=== PATIENT | female | born 1970 | race Caucasian/White ===

== ENCOUNTER 2017-05-25 05:37 | Inpatient (IN) | payer MEDICAID ==
[~2017-05-25] VITALS: Ht 157.5 cm; Wt 65.9 kg
[2017-05-25] MEDS ORDERED: acetaminophen 325mg tablet PO ONE (05:50)
[2017-05-25 06:13] LABS: BASOPHILS % (AUTO) 0.2 % (0-1); EOSINOPHILS % (AUTO) 0.1 % (0-6); HEMATOCRIT 36.2 % (35.0-45.0); HEMOGLOBIN 12.8 g/dl (12.0-16.0); LYMPHOCYTES # (AUTO) 0.6 X10'3 (1.1-4.8); LYMPHOCYTES % (AUTO) 3.9 % (21-51); MEAN CORPUSCULAR HEMOGLOBIN 29.1 PG (27.0-31.0); MEAN CORPUSCULAR HGB CONC 35.4 % (33.0-36.5); MEAN CORPUSCULAR VOLUME 82.2 FL (78-98); MEAN PLATELET VOLUME 7.5 FL (7.4-10.4); MONOCYTES # (AUTO) 0.5 X10'3 (0-0.9); MONOCYTES % (AUTO) 3.2 % (2-12); NEUTROPHILS # (AUTO) 14.9 X10'3 (1.8-7.7); NEUTROPHILS % (AUTO) 92.6 % (42-75); PLATELET COUNT 222 X10'3 (140-440); RED CELL DISTRIBUTION WIDTH 13.7 % (11.5-14.5); WHITE BLOOD COUNT 16.1 X10'3 (4.5-11.0)
[2017-05-25] MEDS ORDERED: METF500T PO (06:14)
[2017-05-25] MEDS ORDERED: LISI-600 PO (06:14)
[2017-05-25] MEDS ORDERED: normal saline 1000ML IV soln IV ONE (06:20)
[2017-05-25] MEDS ORDERED: CefTRIAXone 2gm/D5W 50ml 50 ML IV ONE (06:20)
[2017-05-25 06:28] LABS: ALANINE AMINOTRANSFERASE 71 U/L (12-78); ALBUMIN 3.6 G/DL (3.4-5.0); ALBUMIN/GLOBULIN RATIO 0.8 (1.1-1.5); ALKALINE PHOSPHATASE 113 IU/L (46-116); ANION GAP 13 (8-16); ASPARTATE AMINO TRANSFERASE 26 U/L (10-37); BILIRUBIN,TOTAL 0.5 MG/DL (0.1-1.0); BLOOD UREA NITROGEN 22 MG/DL (7-18); BUN/CREATININE RATIO 18.8 (6.6-38.0); CALCIUM 9.2 MG/DL (8.5-10.1); CHLORIDE 97 MMOL/L (99-107); CREATININE 1.17 MG/DL (0.40-0.90); GLUCOSE 261 MG/DL (70-104); POTASSIUM 4.1 MMOL/L (3.5-5.1); SODIUM 134 MMOL/L (135-145); TOTAL CARBON DIOXIDE 23.9 MMOL/L (24-32); TOTAL PROTEIN 8.1 G/DL (6.4-8.2); eGFR 50 ML/MIN
[2017-05-25 06:30] LABS: PARTIAL THROMBOPLASTIN TIME 27 SECONDS (22-32); PROTHROMBIN TIME 10.4 SECONDS (9.0-12.0)
[2017-05-25] MEDS ORDERED: TETanus/Pertussis (Acell)/Diphther VAC/PF (Tdap-Adult) 0.5ml syringe IM ONE (06:35)
[2017-05-25 06:37] LABS: CLARITY,URINE SLIGHTLY CLOUDY (Clear); COLOR,URINE YELLOW (Yellow); GLUCOSE, URINE 100 mg/dl (Neg); KETONES,URINE NEGATIVE (Neg); LEUKOCYTE ESTERASE ,URINE TRACE (Neg); NITRITES, URINE POSITIVE (Neg); OCCULT BLOOD,URINE SMALL (Neg); PROTEIN,URINE NEGATIVE (Neg); UROBILINOGEN,URINE 0.2 E.U/dL (0.2-1.0)
[2017-05-25 06:44] LABS: UA COLLECTION TYPE CLN CATCH MIDSTREAM
[2017-05-25 06:47] LABS: BACTERIA,URINE 4+ /HPF (Neg); MUCUS STRANDS NONE SEEN /LPF (Neg); RBC,URINE NONE SEEN /HPF (0-2); SQUAMOUS EPITHELIAL CELL,UR FEW /LPF (FEW); WBC,URINE 0-4 /HPF (0-4)
[2017-05-25] MEDS ORDERED: potassium Cl 20 mEq SR tablet PO PRN (07:25)
[2017-05-25] MEDS ORDERED: magnesium 4gm in 100ml NS 100 ML IV PRN (07:25)
[2017-05-25] MEDS ORDERED: mag hydrox/Alum hydrox/simeth 30ml oral suspension PO PRN (07:25)
[2017-05-25] MEDS ORDERED: magnesium 2GM in 50ml NS 50 ML IV PRN (07:25)
[2017-05-25] MEDS ORDERED: ondansetron/PF 4mg/2ml inj IV PRN (07:25)
[2017-05-25] MEDS ORDERED: potassium Cl 40MEQ/NS 500ml 500 ML IV PRN ×2 (07:25)
[2017-05-25] MEDS ORDERED: acetaminophen 325mg tablet PO PRN ×2 (07:25)
[2017-05-25] MEDS ORDERED: magnesium hydroxide 30ml (MOM) UD suspension PO PRN (07:25)
[2017-05-25 07:53] LABS: HEMOGLOBIN A1C 9.4 % (4.5-6.2)
[2017-05-25] MEDS: K and/or MAG REPLACEMENT MC SCH (08:00)
[2017-05-25] MEDS ORDERED: dextrose 50%-water 50ml dispensing syringe IV PRN ×2 (08:05)
[2017-05-25] MEDS ORDERED: dextrose ORAL solution 15 GM/59 ML bottle PO PRN ×2 (08:05)
[2017-05-25] MEDS ORDERED: MESSAGE TO PHARMACY PO ONE (08:05)
[2017-05-25] MEDS ORDERED: glucagon, human recombinant 1mg kit SUBCUT PRN (08:05)
[2017-05-25] MEDS: enoxaparin 40mg/0.4ml syringe SUBCUT SCH (08:14)
[2017-05-25] MEDS: normal saline 1000ml 1,000 ML IV SCH ×2 (08:14→17:25)
[2017-05-25] MEDS: morphine 4 MG/ML inj SYRINge IV PRN (08:22)
[2017-05-25] MEDS: HYDROcodone/acetaminophen 5mg/325mg tablet PO PRN ×2 (08:22→21:11)
[2017-05-25 10:00] VITALS: BP 133/74
[2017-05-25 12:05] VITALS: BP 104/59
[2017-05-25] MEDS ORDERED: ampicillin/sulbac 3gm/NS 100ml 100 ML IV SCH (14:00)
[2017-05-25] MEDS: SULBACTAM IV SCH ×2 (16:45→21:12)
[2017-05-25] MEDS: DEXTROSE 5% IV SCH ×2 (16:45→21:12)
[2017-05-25] MEDS: AMPICILLIN IV SCH ×2 (16:45→21:12)
[2017-05-25] MEDS: WATER IV SCH ×2 (16:45→21:12)
[2017-05-25 18:00] VITALS: BP 93/44
[2017-05-25] MEDS ORDERED: temazepam 15mg capsule PO PRN (21:00)
[2017-05-25] MEDS: metFORMIN 500mg tablet PO SCH (21:12)
[2017-05-25] MEDS: famotidine 20mg tablet PO SCH (21:12)
[2017-05-25] MEDS: insulin glargine (Lantus) pen - multi-dose SQ SCH (21:25)
[2017-05-25 22:00] VITALS: BP 125/69
[2017-05-26] MEDS: SULBACTAM IV SCH ×4 (01:55→19:39)
[2017-05-26] MEDS: AMPICILLIN IV SCH ×4 (01:55→19:39)
[2017-05-26] MEDS: WATER IV SCH ×4 (01:55→19:39)
[2017-05-26] MEDS: DEXTROSE 5% IV SCH ×4 (01:55→19:39)
[2017-05-26] MEDS: normal saline 1000ml 1,000 ML IV SCH ×2 (02:07→13:59)
[2017-05-26] MEDS: HYDROcodone/acetaminophen 5mg/325mg tablet PO PRN ×3 (02:07→17:02)
[2017-05-26 06:00] VITALS: BP 117/57
[2017-05-26 06:03] LABS: BASOPHILS % (AUTO) 0.1 % (0-1); EOSINOPHILS # (AUTO) 0.1 X10'3 (0-0.9); EOSINOPHILS % (AUTO) 1.2 % (0-6); HEMATOCRIT 32.4 % (35.0-45.0); HEMOGLOBIN 11.1 g/dl (12.0-16.0); LYMPHOCYTES % (AUTO) 11.4 % (21-51); MEAN CORPUSCULAR HEMOGLOBIN 28.6 PG (27.0-31.0); MEAN CORPUSCULAR HGB CONC 34.3 % (33.0-36.5); MEAN CORPUSCULAR VOLUME 83.3 FL (78-98); MEAN PLATELET VOLUME 8.1 FL (7.4-10.4); MONOCYTES # (AUTO) 0.3 X10'3 (0-0.9); MONOCYTES % (AUTO) 3.5 % (2-12); NEUTROPHILS # (AUTO) 7.5 X10'3 (1.8-7.7); NEUTROPHILS % (AUTO) 83.8 % (42-75); PLATELET COUNT 152 X10'3 (140-440); RED CELL DISTRIBUTION WIDTH 14.2 % (11.5-14.5); WHITE BLOOD COUNT 8.9 X10'3 (4.5-11.0)
[2017-05-26 06:20] LABS: ALBUMIN 2.4 G/DL (3.4-5.0); ANION GAP 11 (8-16); BLOOD UREA NITROGEN 12 MG/DL (7-18); BUN/CREATININE RATIO 12.6 (6.6-38.0); CALCIUM 8.1 MG/DL (8.5-10.1); CHLORIDE 102 MMOL/L (99-107); CREATININE 0.95 MG/DL (0.40-0.90); GLUCOSE 138 MG/DL (70-104); MAGNESIUM 1.4 MG/DL (1.5-2.4); POTASSIUM 3.4 MMOL/L (3.5-5.1); SODIUM 136 MMOL/L (135-145); TOTAL CARBON DIOXIDE 22.7 MMOL/L (24-32); eGFR 63 ML/MIN
[2017-05-26] MEDS: K and/or MAG REPLACEMENT MC SCH (08:00)
[2017-05-26] MEDS: metFORMIN 500mg tablet PO SCH ×2 (08:46→19:40)
[2017-05-26] MEDS: enoxaparin 40mg/0.4ml syringe SUBCUT SCH (08:47)
[2017-05-26] MEDS: magnesium Cl slow-release 64mg tablet PO PRN ×2 (08:47→16:59)
[2017-05-26] MEDS: potassium Cl 20 mEq SR tablet PO PRN ×3 (08:47→22:55)
[2017-05-26] MEDS: lisinopril 20mg tablet PO SCH (08:50)
[2017-05-26 08:51] VITALS: BP 138/80
[2017-05-26 10:00] VITALS: BP 118/66
[2017-05-26] MEDS: morphine 4 MG/ML inj SYRINge IV PRN ×2 (14:28→19:47)
[2017-05-26 18:00] VITALS: BP 116/62
[2017-05-26] MEDS: insulin Lispro (HumaLOG) vial - multi-dose SQ SCH (19:38)
[2017-05-26] MEDS: famotidine 20mg tablet PO SCH (21:28)
[2017-05-26] MEDS: insulin glargine (Lantus) pen - multi-dose SQ SCH (21:28)
[2017-05-26 22:00] VITALS: BP 104/61
[2017-05-27] MEDS: SULBACTAM IV SCH ×4 (01:33→19:19)
[2017-05-27] MEDS: WATER IV SCH ×4 (01:33→19:19)
[2017-05-27] MEDS: DEXTROSE 5% IV SCH ×4 (01:33→19:19)
[2017-05-27] MEDS: AMPICILLIN IV SCH ×4 (01:33→19:19)
[2017-05-27] MEDS: HYDROcodone/acetaminophen 5mg/325mg tablet PO PRN ×4 (01:34→21:43)
[2017-05-27] MEDS: normal saline 1000ml 1,000 ML IV SCH ×3 (01:37→21:48)
[2017-05-27 05:28] LABS: BASOPHILS % (AUTO) 0.1 % (0-1); EOSINOPHILS # (AUTO) 0.1 X10'3 (0-0.9); EOSINOPHILS % (AUTO) 0.9 % (0-6); HEMOGLOBIN 10.6 g/dl (12.0-16.0); LYMPHOCYTES # (AUTO) 1.2 X10'3 (1.1-4.8); MEAN CORPUSCULAR HEMOGLOBIN 28.6 PG (27.0-31.0); MEAN PLATELET VOLUME 7.9 FL (7.4-10.4); MONOCYTES # (AUTO) 0.4 X10'3 (0-0.9); MONOCYTES % (AUTO) 5.4 % (2-12); NEUTROPHILS # (AUTO) 6.1 X10'3 (1.8-7.7); NEUTROPHILS % (AUTO) 78.6 % (42-75); PLATELET COUNT 165 X10'3 (140-440); RED BLOOD COUNT 3.69 X10'6 (4.20-5.60); RED CELL DISTRIBUTION WIDTH 13.9 % (11.5-14.5); WHITE BLOOD COUNT 7.8 X10'3 (4.5-11.0)
[2017-05-27 05:43] LABS: ALBUMIN 2.3 G/DL (3.4-5.0); ANION GAP 7 (8-16); BLOOD UREA NITROGEN 9 MG/DL (7-18); BUN/CREATININE RATIO 9.8 (6.6-38.0); CALCIUM 8.7 MG/DL (8.5-10.1); CHLORIDE 106 MMOL/L (99-107); CREATININE 0.92 MG/DL (0.40-0.90); GLUCOSE 119 MG/DL (70-104); MAGNESIUM 1.7 MG/DL (1.5-2.4); POTASSIUM 4.2 MMOL/L (3.5-5.1); SODIUM 141 MMOL/L (135-145); eGFR 66 ML/MIN
[2017-05-27 06:00] VITALS: BP 124/64
[2017-05-27] MEDS: K and/or MAG REPLACEMENT MC SCH (07:10)
[2017-05-27] MEDS: metFORMIN 500mg tablet PO SCH ×2 (07:17→19:19)
[2017-05-27] MEDS: enoxaparin 40mg/0.4ml syringe SUBCUT SCH (07:18)
[2017-05-27] MEDS: lisinopril 20mg tablet PO SCH (07:20)
[2017-05-27 07:21] VITALS: BP 116/73
[2017-05-27] MEDS: insulin Lispro (HumaLOG) vial - multi-dose SQ SCH ×3 (09:26→19:18)
[2017-05-27 10:00] VITALS: BP 127/77
[2017-05-27] MEDS: clindamycin phosphate inj 300 MG in dextrose 5%-water 50ml 48 ML IV SCH ×2 (15:22→21:39)
[2017-05-27 18:00] VITALS: BP 107/65
[2017-05-27] MEDS: Protein Smoothie (high protein) 240ml (8oz) cup PO SCH (18:00)
[2017-05-27] MEDS: famotidine 20mg tablet PO SCH (21:39)
[2017-05-27] MEDS: insulin glargine (Lantus) pen - multi-dose SQ SCH (21:39)
[2017-05-27 22:00] VITALS: BP 111/72
[2017-05-28] MEDS: SULBACTAM IV SCH ×4 (01:26→20:24)
[2017-05-28] MEDS: DEXTROSE 5% IV SCH ×4 (01:26→20:24)
[2017-05-28] MEDS: AMPICILLIN IV SCH ×4 (01:26→20:24)
[2017-05-28] MEDS: WATER IV SCH ×4 (01:26→20:24)
[2017-05-28] MEDS: clindamycin phosphate inj 300 MG in dextrose 5%-water 50ml 48 ML IV SCH ×4 (02:04→21:30)
[2017-05-28] MEDS: normal saline 1000ml 1,000 ML IV SCH ×2 (05:25→13:08)
[2017-05-28 05:48] LABS: BASOPHILS % (AUTO) 0.2 % (0-1); EOSINOPHILS # (AUTO) 0.1 X10'3 (0-0.9); EOSINOPHILS % (AUTO) 1.2 % (0-6); HEMATOCRIT 28.8 % (35.0-45.0); HEMOGLOBIN 9.8 g/dl (12.0-16.0); LYMPHOCYTES # (AUTO) 1.2 X10'3 (1.1-4.8); LYMPHOCYTES % (AUTO) 18.5 % (21-51); MEAN CORPUSCULAR HEMOGLOBIN 28.3 PG (27.0-31.0); MEAN CORPUSCULAR VOLUME 83.2 FL (78-98); MEAN PLATELET VOLUME 8.3 FL (7.4-10.4); MONOCYTES # (AUTO) 0.5 X10'3 (0-0.9); MONOCYTES % (AUTO) 7.7 % (2-12); NEUTROPHILS # (AUTO) 4.6 X10'3 (1.8-7.7); NEUTROPHILS % (AUTO) 72.4 % (42-75); PLATELET COUNT 148 X10'3 (140-440); RED BLOOD COUNT 3.46 X10'6 (4.20-5.60); RED CELL DISTRIBUTION WIDTH 13.9 % (11.5-14.5); WHITE BLOOD COUNT 6.3 X10'3 (4.5-11.0)
[2017-05-28 05:58] LABS: ALBUMIN 2.1 G/DL (3.4-5.0); ANION GAP 9 (8-16); BLOOD UREA NITROGEN 10 MG/DL (7-18); BUN/CREATININE RATIO 11.6 (6.6-38.0); CALCIUM 8.7 MG/DL (8.5-10.1); CHLORIDE 104 MMOL/L (99-107); CREATININE 0.86 MG/DL (0.40-0.90); GLUCOSE 122 MG/DL (70-104); MAGNESIUM 1.8 MG/DL (1.5-2.4); SODIUM 140 MMOL/L (135-145); TOTAL CARBON DIOXIDE 27.5 MMOL/L (24-32); eGFR 71 ML/MIN
[2017-05-28 06:00] VITALS: BP 121/74
[2017-05-28] MEDS: K and/or MAG REPLACEMENT MC SCH (07:22)
[2017-05-28 07:30] VITALS: BP 129/74
[2017-05-28] MEDS: metFORMIN 500mg tablet PO SCH ×2 (07:30→21:14)
[2017-05-28] MEDS: enoxaparin 40mg/0.4ml syringe SUBCUT SCH (07:31)
[2017-05-28] MEDS: lisinopril 20mg tablet PO SCH (07:40)
[2017-05-28] MEDS: Protein Smoothie (high protein) 240ml (8oz) cup PO SCH ×3 (08:00→21:07)
[2017-05-28 09:58] LABS: % IRON SATURATION 10 % (11-46); IRON 22 UG/DL (49-151); TOTAL IRON BINDING CAPACITY 225 UG/DL (259-388)
[2017-05-28 09:59] VITALS: BP 109/57
[2017-05-28] MEDS: HYDROcodone/acetaminophen 5mg/325mg tablet PO PRN (10:04)
[2017-05-28 18:00] VITALS: BP 106/69
[2017-05-28] MEDS: morphine 4 MG/ML inj SYRINge IV PRN (19:14)
[2017-05-28] MEDS: famotidine 20mg tablet PO SCH (21:15)
[2017-05-28] MEDS: insulin glargine (Lantus) pen - multi-dose SQ SCH (21:19)
[2017-05-28 22:00] VITALS: BP 112/63
[2017-05-29] MEDS: normal saline 1000ml 1,000 ML IV SCH ×2 (01:25→11:05)
[2017-05-29] MEDS: DEXTROSE 5% IV SCH ×2 (02:06→09:31)
[2017-05-29] MEDS: SULBACTAM IV SCH ×2 (02:06→09:31)
[2017-05-29] MEDS: WATER IV SCH ×2 (02:06→09:31)
[2017-05-29] MEDS: AMPICILLIN IV SCH ×2 (02:06→09:31)
[2017-05-29] MEDS: clindamycin phosphate inj 300 MG in dextrose 5%-water 50ml 48 ML IV SCH ×2 (03:32→08:16)
[2017-05-29 05:34] LABS: BASOPHILS % (AUTO) 0.1 % (0-1); EOSINOPHILS # (AUTO) 0.1 X10'3 (0-0.9); EOSINOPHILS % (AUTO) 1.1 % (0-6); HEMATOCRIT 28.9 % (35.0-45.0); HEMOGLOBIN 9.9 g/dl (12.0-16.0); LYMPHOCYTES % (AUTO) 18.6 % (21-51); MEAN CORPUSCULAR HEMOGLOBIN 28.6 PG (27.0-31.0); MEAN CORPUSCULAR HGB CONC 34.3 % (33.0-36.5); MEAN CORPUSCULAR VOLUME 83.3 FL (78-98); MEAN PLATELET VOLUME 8.1 FL (7.4-10.4); MONOCYTES # (AUTO) 0.4 X10'3 (0-0.9); MONOCYTES % (AUTO) 7.6 % (2-12); NEUTROPHILS # (AUTO) 4.1 X10'3 (1.8-7.7); NEUTROPHILS % (AUTO) 72.6 % (42-75); PLATELET COUNT 179 X10'3 (140-440); RED BLOOD COUNT 3.47 X10'6 (4.20-5.60); RED CELL DISTRIBUTION WIDTH 13.9 % (11.5-14.5); WHITE BLOOD COUNT 5.6 X10'3 (4.5-11.0)
[2017-05-29 05:46] LABS: ALBUMIN 2.2 G/DL (3.4-5.0); ANION GAP 9 (8-16); BLOOD UREA NITROGEN 10 MG/DL (7-18); BUN/CREATININE RATIO 12.2 (6.6-38.0); CALCIUM 8.7 MG/DL (8.5-10.1); CHLORIDE 105 MMOL/L (99-107); CREATININE 0.82 MG/DL (0.40-0.90); GLUCOSE 121 MG/DL (70-104); MAGNESIUM 1.9 MG/DL (1.5-2.4); POTASSIUM 3.6 MMOL/L (3.5-5.1); SODIUM 142 MMOL/L (135-145); TOTAL CARBON DIOXIDE 27.8 MMOL/L (24-32); eGFR 75 ML/MIN
[2017-05-29 06:00] VITALS: BP 145/85
[2017-05-29] MEDS: K and/or MAG REPLACEMENT MC SCH (08:00)
[2017-05-29] MEDS: enoxaparin 40mg/0.4ml syringe SUBCUT SCH (08:16)
[2017-05-29] MEDS: metFORMIN 500mg tablet PO SCH (08:16)
[2017-05-29] MEDS: lisinopril 20mg tablet PO SCH (08:16)
[2017-05-29] MEDS: Protein Smoothie (high protein) 240ml (8oz) cup PO SCH (08:17)
[2017-05-29] MEDS: HYDROcodone/acetaminophen 5mg/325mg tablet PO PRN (08:18)
[2017-05-29 10:31] VITALS: BP 114/72
[2017-05-29] MEDS ORDERED: LACT1CAP60 PO (11:21)
[2017-05-29] MEDS ORDERED: CLIN300C71 PO (11:21)
[2017-05-29] MEDS ORDERED: SULF1TAB49 PO (11:48)
[2017-05-29] MEDS ORDERED: lactobacillus rhamnosus 10,000 MMU CELLS/CAPSULE PO SCH (20:00)
== END 2017-05-29 12:30 | disposition home or self-care (01) | DRG 720 ==
LOC: ER 05:37 → ED HOLD 07:25 → ORTHO 4S 11:35
PROVIDERS: ADMIT Internal Medicine; ATTEND Internal Medicine
DX: A41.9 Sepsis, unspecified organism (principal); I10 Essential (primary) hypertension; L03.115 Cellulitis of right lower limb; E11.9 Type 2 diabetes mellitus without complications; F12.90 Cannabis use, unspecified, uncomplicated; F17.210 Nicotine dependence, cigarettes, uncomplicated; L03.116 Cellulitis of left lower limb
CPT/HCPCS: 36415; 70486; 71045; 73590; 80048; 80053; 81001; 82607; 82746; 82948; 83036; 83540; 83550; 83605; 83735; 84145; 85025; 85610; 85730; 87040; 87070; 87077; 87088; 87186; 90471; 90715; 93971; 96365; 99285; J0295; J0696; J1650; J1815; J2270; J3490; J7030; J7060

== ENCOUNTER 2024-05-13 22:04 | Emergency (ER) | payer MEDICAID ==
[~2024-05-13] VITALS: Ht 157.5 cm; Wt 71.8 kg
[~2024-05-13 22:04] MED LIST: CLIN300C71 PO; LACT1CAP60 PO; LISI20TA28 PO; METF500T PO; SULF1TAB49 PO
[2024-05-13 22:49] LABS: BASOPHILS # (AUTO) 0.1 X10'3 (0-0.2); BASOPHILS % (AUTO) 0.8 % (0-1); EOSINOPHILS # (AUTO) 0.1 X10'3 (0-0.9); EOSINOPHILS % (AUTO) 1.8 % (0-6); HEMATOCRIT 42.5 % (35.0-45.0); HEMOGLOBIN 14.5 g/dl (12.0-16.0); LYMPHOCYTES # (AUTO) 2.4 X10'3 (1.1-4.8); LYMPHOCYTES % (AUTO) 30.5 % (21-51); MEAN CORPUSCULAR HEMOGLOBIN 28.5 PG (27.0-31.0); MONOCYTES # (AUTO) 0.4 X10'3 (0-0.9); MONOCYTES % (AUTO) 4.9 % (2-12); NEUTROPHILS # (AUTO) 4.9 X10'3 (1.8-7.7); PLATELET COUNT 292 X10'3 (140-440); RED BLOOD COUNT 5.06 X10'6 (4.20-5.60); RED CELL DISTRIBUTION WIDTH 13.3 % (11.5-14.5); WHITE BLOOD COUNT 7.9 X10'3 (4.5-11.0)
[2024-05-13 22:59] LABS: ALBUMIN 3.5 G/DL (3.4-5.0); ANION GAP 9 (8-16); BLOOD UREA NITROGEN 22 MG/DL (7-18); BUN/CREATININE RATIO 22.2 (10.0-20.0); CALCIUM 9.2 MG/DL (8.5-10.1); CHLORIDE 95 MMOL/L (99-107); CREATININE 0.99 MG/DL (0.40-0.90); POTASSIUM 4.1 MMOL/L (3.5-5.1); SODIUM 133 MMOL/L (135-145); TOTAL CARBON DIOXIDE 28.9 MMOL/L (24-32); eCRCL 52 ML/MIN; eGFR 59 ML/MIN
[2024-05-13 23:21] LABS: BILIRUBIN,URINE NEGATIVE (Neg); CLARITY,URINE SLIGHTLY CLOUDY (Clear); COLOR,URINE YELLOW (Yellow); GLUCOSE, URINE >=1000 mg/dl (Neg); KETONES,URINE NEGATIVE (Neg); LEUKOCYTE ESTERASE ,URINE NEGATIVE (Neg); OCCULT BLOOD,URINE TRACE-INTACT (Neg); PH,URINE 5.5 (4.8-8.0); PROTEIN,URINE NEGATIVE (Neg); UROBILINOGEN,URINE 0.2 E.U/dL (0.2-1.0)
[2024-05-13 23:29] LABS: NITRITES, URINE POSITIVE (Neg)
[2024-05-13 23:30] LABS: BACTERIA,URINE 3+ /HPF (Neg); RBC,URINE 0-2 /HPF (0-2); SQUAMOUS EPITHELIAL CELL,UR FEW /LPF (FEW)
[2024-05-13 23:38] LABS: GLUCOSE 489 MG/DL (70-104)
[2024-05-13 23:48] LABS: UA COLLECTION TYPE NON-SPECIFIED
[2024-05-14] MEDS: metFORMIN 500mg tablet PO ONE (03:19)
[2024-05-14] MEDS: insulin regular, human 10 units/0.1 ml syringe SQ ONE ×2 (03:20→03:47)
[2024-05-14 03:25] LABS: ALANINE AMINOTRANSFERASE 23 U/L (12-78); ALBUMIN/GLOBULIN RATIO 0.7 (1.1-1.5); ALKALINE PHOSPHATASE 138 IU/L (46-116); ASPARTATE AMINO TRANSFERASE 15 U/L (10-37); BILIRUBIN,DIRECT 0.1 MG/DL (0-0.3); BILIRUBIN,TOTAL 0.3 MG/DL (0.1-1.0); TOTAL PROTEIN 8.3 G/DL (6.4-8.2)
[2024-05-14] MEDS: normal saline 1000ml 1,000 ML IV ONE (03:38)
[2024-05-14 03:40] VITALS: TEMP 98.2
[2024-05-14] MEDS ORDERED: iohexol 350MG/ML 100ml bottle IV ONE (07:18)
[2024-05-14 09:00] VITALS: BP 155/102; PULSE 83; RESP 16; O2SAT 100
[2024-05-14] MEDS: CefTRIAXone/D5W-Rocephin 1gm 50 ML IV ONE (09:21)
[2024-05-14] MEDS ORDERED: GABA-530 PO (09:27)
[2024-05-14] MEDS ORDERED: SULF1TAB49 PO (09:27)
== END 2024-05-14 09:44 | disposition home or self-care (01) ==
LOC: ER 22:05
DX: R20.0 Anesthesia of skin (principal); R73.9 Hyperglycemia, unspecified; E11.65 Type 2 diabetes mellitus with hyperglycemia; F12.90 Cannabis use, unspecified, uncomplicated; I10 Essential (primary) hypertension; Z90.89 Acquired absence of other organs
CPT/HCPCS: 36415; 71045; 71275; 74174; 80048; 80076; 81001; 82948; 85025; 85651; 86140; 93931; 96361; 96372; 96374; 99285; A6258; J0696; J1815; J7030; Q9967

== ENCOUNTER 2024-07-04 09:39 | Emergency (ER) | payer MEDICAID ==
[~2024-07-04] VITALS: Ht 157.5 cm; Wt 72.1 kg
[~2024-07-04 09:39] MED LIST changes: +GABA-530 PO
[2024-07-04 09:46] VITALS: BP 173/111; PULSE 98; RESP 14; O2SAT 99
--- NOTE | 2024-07-04 10:09 | Physician Documentation ---
History of Present Illness ~ Chief Complaint: Abscess Stated Complaint: L EAR ACHE Time Seen by MD: 10:08 Primary Medical Doctor: MIRI THOMAS 53-year-old female presents to the emergency department for three days of ear pain. However, she has also noted that she has a swollen painful area behind the ear. The worst of her complaint is that ear pain, noting that she can not lay on that side without having significant discomfort. She denies chills or fever, chest pain or shortness of breath, nausea or vomiting. Tetanus Within 5 Years: No Medication Reconciliation Allergies: Coded Allergies: No Known Allergies (Unverified , 07/04/24) Scheduled Clindamycin HCl (Clindamycin HCl), 1 CAP PO TID Gabapentin (Gabapentin), 1 CAP PO Q8H Lactobac Cmb #3/Fos/Pantethine (Probiotic & Acidophilus Cap), 1 EACH PO BID Lisinopril (Lisinopril), 0.5 TAB PO DAILY, (Reported) Metformin Hcl* (Glucophage*), 1 TAB PO Q12H, (Reported) Sulfamethoxazole/Trimethoprim (Bactrim Ds Tablet), 1 TAB PO Q12H Past Medical History Past Medical History: Hypertension, Diabetes Past Surgical History: tonsillectomy Alcohol Use: Occasionally Drug Use: marijuana Lives In: Home Review of Systems ROS As stated above in the HPI, otherwise all systems are reviewed and negative. Physical Exam Vital Signs: Temperature: 97.3, Source: Temporal, Heart Rate: 98, Respiratory Rate: 14, BP: 173/111, Pulse Oximetry: 99, Weight: 72.100 Physical Exam General: Alert, no apparent distress. HEENT: PERRL, EOMI, no injection, moist mucous membranes. Erythema with exudate in left canal. Left TM intact with rim of erythema but no purulence behind TM. Normal right canal and TM. No mastoid tenderness. Some enlarged left anterior cervical lymph nodes noted on exam. Neck: Full range of motion. Respiratory: Lungs clear, no respiratory distress. Chest: No accessory muscle use. Cardiovascular: Regular rate and rhythm, no murmurs. Gastrointestinal: Soft, nontender, nondistended. Bowels sounds present. Extremities: Normal range of motion, no deformity. Neurologic: Oriented x4. Psychiatric: Normal mood and affect. Skin: Normal color, warm and dry. No edema, no ecchymosis.1 cm ovoid erythematous abscess no amenable to drainage (no significant fluid collection/fluctuance noted) behind left ear. Progress Results/Orders Results/Orders Vital Signs 07/04/24 09:46 Temp 97.3 Pulse 98 Resp 14 B/P (MAP) 173/111 Pulse Ox 99 Medical Decision Making Differential Dx:Considerations: Include: Abscess, Bacteremia, Cellulitis, Erysipelas, Felon, Gas gangrene, Hidrademitis suppurativa, Impetigo, Lymphangitis, Osteromyelitis, Paronychia, Septicemia Departure Time of Disposition: 10: Disposition: HOME / SELF CARE / HOMELESS Impression: Primary Impression: Abscess Additional Impression: External otitis of left ear Condition: Stable Discharge Instructions: Otitis Externa, Skin Abscess, [id number] Additional Instructions: Apply warm moist compresses to the abscess area behind the left ear for 15 minutes 4 times a day. Wash the area of the soap and water daily and apply a topical antibiotic ointment such as bacitracin. Utilize the prescribed ear drops and oral antibiotics per instructions. Follow up with your primary care next week. Return to the ER if worse at any time. Referrals: NO PRIMARY CARE PROVIDER (PCP) Prescriptions Acetic Acid (Acetic Acid) 2 % Solution 4 DROP LEFT EAR Q12H for 7 Days, #15 ML 0 Refills Prov: MICHELLE THURSTON NP 07/04/24 Amox Tr/Potassium Clavulanate 875/125 MG (Augmentin 875/125 MG) 875 Mg-125 Mg Tablet 1 TAB PO BID, #14 TAB Prov: MICHELLE THURSTON [employer]ICE PRESIDENT [employer]ES 07/04/24 Education Educated: Patient Educated regarding: diagnosis, treatment, prognosis, need for follow up Signature Scribe Signature: no scribe Attestation: The note accurately reflects work and decisions made by me.Michelle Thurston - SESAR 07/04/24 10:21 MICHELLE THURSTON NP July 04, 2024 10:08
[2024-07-04] MEDS ORDERED: AMOX-580 PO (10:20)
[2024-07-04] MEDS ORDERED: ACET15SO14 LEFT EAR (10:20)
[2024-07-04 11:06] VITALS: TEMP 97.3
== END 2024-07-04 11:08 | disposition home or self-care (01) ==
LOC: ER 09:39
DX: H66.42 Suppurative otitis media, unspecified, left ear (principal); H60.92 Unspecified otitis externa, left ear; E11.9 Type 2 diabetes mellitus without complications; I10 Essential (primary) hypertension; Z79.899 Other long term (current) drug therapy; F12.90 Cannabis use, unspecified, uncomplicated; Z72.89 Other problems related to lifestyle
CPT/HCPCS: 99283